=== PATIENT | female | born 1945 | race Caucasian/White ===

== ENCOUNTER 2018-02-15 16:39 | Emergency (ER) | payer OTHER, SELFPAY ==
--- NOTE | 2018-02-15 16:41 | DI.RAD.S_ITS ---
PROCEDURE: XR CHEST 1V INDICATIONS: chest pain TECHNIQUE: One view of the chest was acquired. COMPARISON: None. FINDINGS: Surgical changes and devices: None. Lungs and pleura: No pleural effusions or pneumothorax. There are linear opacities peripherally in the lung bases likely representing atelectasis or scarring. Mediastinum: There is a large hiatal hernia. Heart size is normal. Bones and chest wall: No suspicious bony lesions. There is a dextroscoliosis of the lower thoracic spine. Overlying soft tissues appear unremarkable. IMPRESSION: 1. Large hiatal hernia. 2. Probable atelectasis or scarring peripherally in the lung bases. Dictated by: Higinio Ashraf M.D. on 02/15/2018 at 17:14 Approved by: Higinio Ashraf M.D. on 02/15/2018 at 17:15
== END 2018-02-15 19:41 | disposition home or self-care (01) ==
PROVIDERS: Emergency Provider Emergency Medicine; PCP Internal Medicine
DX: R07.89 Other chest pain (principal); F41.9 Anxiety disorder, unspecified
CPT/HCPCS: 71045; 80053; 82550; 83690; 83880; 84484; 85025; 85379; 85610; 85730; 93005; 99285

== ENCOUNTER → 2019-02-01 14:38 | Outpatient (CLI) | payer OTHER, SELFPAY | PROVIDERS: PCP Internal Medicine; Referring Provider Student in an Organized Health Care Education/Training Program; Visit Provider Student in an Organized Health Care Education/Training Program | DX: Z12.31 Encounter for screening mammogram for malignant neoplasm of breast (principal); Z80.3 Family history of malignant neoplasm of breast | CPT/HCPCS: 77063; 77067 ==

== ENCOUNTER → 2020-06-21 10:07 | Outpatient (CLI) | payer OTHER, SELFPAY ==
[2020-06-21 10:32] LABS: COVID19 -Nasal RAPID Negative (Negative)
== END ==
PROVIDERS: PCP Internal Medicine; Visit Provider Surgery
DX: Z20.822 Contact with and (suspected) exposure to COVID-19 (principal)
CPT/HCPCS: 87635; C9803

== ENCOUNTER 2020-06-24 09:23 | Day surgery (SDC) | payer OTHER, SELFPAY ==
[2020-06-24] VITALS (8 sets, daily range): BP systolic 134–160; BP diastolic 69–81; PULSE 62–73; RESP 13–20; TEMP 36.4–36.6; O2SAT 94–100; BMI 32.8
--- NOTE | 2020-06-24 | PATH_ITS ---
[facility] Accession Number: [id number] . 01 Material submitted: . rectum - RECTAL POLYP @15CM . 02 Diagnosis: Rectal Polyp at 15 cm: Tubular adenoma. MRV 06/27/2020 0932 Local . 02 Electronically signed: . Graciela Miner MD, Pathologist NPI- [id number] . 01 Gross description: . RECTAL POLYP @15CM: Received in formalin is 1 fragment(s) of garcia, soft tissue measuring 0.4 x 0.3 x 0.2 cm submitted entirely in 1 cassette(s) /JIAN 06/25/2020 1910 Local . 02 Pathologist provided ICD-10: K63.5 . 02 CPT . 377517 Performed at: 01 [facility] [address] [id number] MD Higinio Valladares MD Phone: [phone] Performed at: 02 [facility] [address] [place], [place] [id number] MD Sidra Nelson MD Phone: [phone]
[2020-06-24 10:01] LABS: Eosinophils Absolute Auto 0 /uL (0-450); Hematocrit 30.8 % (36-46); Monocytes Absolute Auto 700 /uL (0-900); White Blood Cell Count 10.1 X10^3/uL (4.5-11.0)
[2020-06-24 10:05] LABS: Add Manual Diff / Slide Review NO; Basophils Absolute Auto 0 /uL (0-100); Basophils Percent Auto 0.5 % (0-2); Eosinophils Percent Auto 0.2 % (2-4); Hemoglobin 9.3 g/dL (12.0-16.0); Lymphocytes Absolute Auto 900 /uL (1100-4500); Mean Corpuscular HGB Conc 30.1 % (30-36); Mean Corpuscular Hemoglobin 20.6 PG (26-34); Mean Corpuscular Volume 68.2 fL (80-100); Monocytes Percent Auto 7.4 % (3-14); Neutrophils Absolute Auto 8300 /uL (1500-7000); Neutrophils Percent Auto 82.9 % (50-75); Platelet Count 600 X10^3/uL (150-400); Red Blood Cell Count 4.51 X10^6/uL (4.0-5.2); Red Cell Distribution Width 19.1 % (11.6-14.8)
[2020-06-24] MEDS: SODIUM CHLORIDE 0.9% 1,000 ML 200 ML IV (10:12)
[2020-06-24 10:28] LABS: Anisocytosis 1+; Hypochromasia 1+; Microcytosis 1+
--- NOTE | 2020-06-24 10:42 | PM.PREOP ---
Pre-operative Note COVID-19 COVID-19 status: Negative Result date/Date tested (Pos, Neg/Pending): 06/21/20 Interval Note History & Physical reviewed/Exam performed by Physician: Yes Changes to H&P: No
--- NOTE | 2020-06-24 10:55 | P.OP.ENDO_ITS ---
Operative Date/Time/Diagnoses Date of procedure: 06/24/20 Time of procedure: 10:55 Pre-op diagnosis: Anemia, personal history of colon polyps in 2012 Post-op diagnosis: other (Low-grade diverticulosis. Single pre cancerous appearing polyp in the rectum. No specific source of anemia was identified.) Procedure & Clinicians Study performed: Colonoscopy Polypectomy with Jumbo forceps Esophagogastroduodenoscopy Same procedure as scheduled: Yes Indications: Anemia, rule out GI source, personal history of colon polyps in 2013. Due to her severe anemia, and therefore increased cardiac risk for the procedure, I have consulted the anesthesiologist to provide sedation and monitor the patient during the procedure. Surgeon: Shu Lane Procedure Notes SCOAP/Timeout: Performed Procedure in detail: The patient was brought to the room and placed in left lateral decubitus position with all bony prominences padded. A bite block was positioned in the patient's mouth to protect the lips, teeth, and tongue for the procedure. A time-out was performed and then the patient was given MAC sedation by Dr. Conklin. Once adequately sedated, the procedure was begun. The lubricated gastroscope was passed through the bite block and across the tongue and into the esophagus without incident. A tubular view of the esophagus was maintained as the scope was advanced through the esophagus and into the stomach. The scope was advanced through the stomach and to the pylorus. The scope was gently popped through the pylorus and into the duodenal bulb. The scope was flexed and advanced into the second and third portions of the duodenum. The duodenum and duodenal bulb [appeared normal]. The scope was withdrawn into the stomach. The stomach [appeared normal]. The scope was retroflexed and the gastric cardia was examined. The patient had a large, Hill grade 4 hiatal hernia without any erosions or ulcerations. The scope was then straightened, and withdrawn into the esophagus. The Z-line [appeared normal]. The distal esophagus [appeared normal]. The scope was then withdrawn through the esophagus with a tubular view. The scope was then withdrawn from the patient And attention was turned to the colonoscopy portion of the procedure. A rectal exam was performed revealing no abnormalities. The colonoscope was then introduced to the rectum and advanced to the cecum in the usual fashion.]The cecum was identified by the appendiceal orifice, the mucosal tri- fold, and the ileocecal valve. In the cecum there was a small submucosal contour abnormality consistent with a granuloma, or suture material from prior surgery covered with mucosa. There was no polyp associated with this, and it did not appear to be an AVM or any cancerous or precancerous lesion. It did not appear to be any source of anemia. Scope was then retracted while rotating side to side and examining each mucosal fold. A small polyp was found at 15 cm in the rectum, and removed with Jumbo forceps. It did not appear to be a source of bleeding. Low-grade diverticulosis was seen in the sigmoid colon. It did not appear to be any source of bleeding or anemia. At the conclusion of the procedure retroflexion was performed and small grade 1-2 internal hemorrhoids without stigmata of bleeding were seen. The scope was then withdrawn from the rectum the procedure was concluded. The patient tolerated the procedure well and was transferred to the PACU in stable condition. Scope withdrawal time: 8 Findings: diverticulosis, hiatal hernia, polyp and other findings (No source of bleeding or anemia was found) Specimen(s): none sent (Rectal polyp) Complications: none Impression: No source of bleeding or anemia was found. Post-procedure Recommendations: Colonscopy in 5 years (Depending on pathology results) Follow up: as needed Disposition: PACU
== END 2020-06-24 12:13 | disposition home or self-care (01) ==
PROVIDERS: PCP Internal Medicine; Referring Provider Surgery; Visit Provider Surgery
PROC: 0DJ08ZZ Inspection of Upper Intestinal Tract, Via Natural or Artificial Opening Endoscopic (ICD-10-PCS; CPT 43235; principal; 2020-06-24 10:45)
PROC: 0DJD8ZZ Inspection of Lower Intestinal Tract, Via Natural or Artificial Opening Endoscopic (ICD-10-PCS; CPT 45378; 2020-06-24 10:45)
DX: D64.9 Anemia, unspecified (principal); K21.9 Gastro-esophageal reflux disease without esophagitis; I10 Essential (primary) hypertension; E66.9 Obesity, unspecified; Z68.32 Body mass index [BMI] 32.0-32.9, adult; K64.0 First degree hemorrhoids; K57.30 Diverticulosis of large intestine without perforation or abscess without bleeding; K44.9 Diaphragmatic hernia without obstruction or gangrene; D12.8 Benign neoplasm of rectum
CPT/HCPCS: 45380; 43235; 36415; 85025

== ENCOUNTER → 2020-07-08 18:42 | Outpatient (ROUT) | payer OTHER, SELFPAY ==
[2020-07-08 19:30] LABS: Add Manual Diff / Slide Review NO; Basophils Absolute Auto 100 /uL (0-100); Basophils Percent Auto 1.1 % (0-2); Eosinophils Absolute Auto 100 /uL (0-450); Eosinophils Percent Auto 1.6 % (2-4); Hematocrit 33.2 % (36-46); Lymphocytes Absolute Auto 1000 /uL (1100-4500); Lymphocytes Percent Auto 15.2 % (25-40); Mean Corpuscular Hemoglobin 21.9 PG (26-34); Mean Corpuscular Volume 73.1 fL (80-100); Monocytes Absolute Auto 700 /uL (0-900); Monocytes Percent Auto 9.7 % (3-14); Neutrophils Absolute Auto 4900 /uL (1500-7000); Neutrophils Percent Auto 72.4 % (50-75); Platelet Count 379 X10^3/uL (150-400); Red Blood Cell Count 4.54 X10^6/uL (4.0-5.2); Red Cell Distribution Width 25.3 % (11.6-14.8); White Blood Cell Count 6.8 X10^3/uL (4.5-11.0)
[2020-07-08 19:52] LABS: Blood Urea Nitrogen 21 mg/dL (7-17); Calcium 9.9 mg/dL (8.4-10.2); Carbon Dioxide 26 mmol/L (22-32); Chloride 104 mmol/L (98-107); Estimated Glomerular Filt Rate > 60.0 mL/min (>60); Glucose 100 mg/dL (80-110); HEMOLYSIS < 15 (0-50); Potassium 4.9 mmol/L (3.4-5.1); Sodium 139 mmol/L (137-145)
[2020-07-08 20:00] LABS: Hypochromasia 2+; Microcytosis 2+
[2020-07-08 20:01] LABS: Polychromasia 1+
[2020-07-08 20:34] LABS: Ferritin 17 ng/mL (11-264)
== END ==
PROVIDERS: PCP Internal Medicine; Visit Provider Internal Medicine
DX: D50.9 Iron deficiency anemia, unspecified (principal); I10 Essential (primary) hypertension
CPT/HCPCS: 80048; 82728; 83540; 83550; 85025

== ENCOUNTER → 2020-08-23 19:01 | Outpatient (ROUT) | payer OTHER, SELFPAY ==
[2020-08-23 19:23] LABS: HEMOLYSIS < 15 (0-50); Iron 48 ug/dL (37-170)
[2020-08-23 19:24] LABS: BUN Creatinine Ratio 31.9 (6-22); Blood Urea Nitrogen 30 mg/dL (7-17); Estimated Glomerular Filt Rate 58.4 mL/min (>60)
[2020-08-23 19:26] LABS: Add Manual Diff / Slide Review NO; Basophils Absolute Auto 0 /uL (0-100); Basophils Percent Auto 0.7 % (0-2); Eosinophils Absolute Auto 100 /uL (0-450); Eosinophils Percent Auto 0.7 % (2-4); Hematocrit 40.6 % (36-46); Hemoglobin 12.9 g/dL (12.0-16.0); Lymphocytes Absolute Auto 1600 /uL (1100-4500); Lymphocytes Percent Auto 21.5 % (25-40); Mean Corpuscular HGB Conc 31.8 % (30-36); Mean Corpuscular Hemoglobin 25.9 PG (26-34); Mean Corpuscular Volume 81.6 fL (80-100); Monocytes Absolute Auto 500 /uL (0-900); Monocytes Percent Auto 6.8 % (3-14); Neutrophils Absolute Auto 5300 /uL (1500-7000); Neutrophils Percent Auto 70.3 % (50-75); Platelet Count 307 X10^3/uL (150-400); Red Blood Cell Count 4.98 X10^6/uL (4.0-5.2); Red Cell Distribution Width 30.4 % (11.6-14.8); White Blood Cell Count 7.5 X10^3/uL (4.5-11.0)
[2020-08-23 19:34] LABS: Percent Iron Saturation 16 % (15-50); Total Iron Binding Capacity 304 ug/dL (265-497); Transferrin 250 mg/dL (206-381)
[2020-08-23 19:59] LABS: Ferritin 86 ng/mL (11-264)
[2020-08-23 20:02] LABS: Anisocytosis 3+; Dimorphic RBC PRESENT; Microcytosis 1+
== END ==
PROVIDERS: PCP Internal Medicine; Visit Provider Internal Medicine
DX: D50.9 Iron deficiency anemia, unspecified (principal); I10 Essential (primary) hypertension; R10.9 Unspecified abdominal pain
CPT/HCPCS: 82565; 82728; 83540; 83550; 84520; 85025

== ENCOUNTER → 2020-08-27 09:22 | Outpatient (CLI) | payer OTHER, SELFPAY ==
--- NOTE | 2020-08-27 10:37 | DI.CT.S_ITS ---
PROCEDURE: CT ABDOMEN PELVIS W CON INDICATIONS: Unspecified abdominal pain TECHNIQUE: After the administration of oral and intravenous contrast, axial sections were acquired from the lung bases to the pubic symphysis. Coronal and sagittal reformats were performed. For radiation dose reduction, the following was used: automated exposure control, adjustment of mA and/or kV according to patient size. COMPARISON:None. FINDINGS: Image quality: Excellent. Lung bases: Unremarkable. However, a moderately large hiatal hernia is seen behind the heart. Heart: No significant findings. ABDOMEN: Liver: Unremarkable. Gallbladder: Normal. Biliary ducts: Unremarkable. Pancreas: Unremarkable. Spleen: Unremarkable. Adrenal Glands: Unremarkable. Kidneys and Ureters: Unremarkable. Stomach and Bowel: Stomach, small bowel loops, and colon are unremarkable. Mild to moderate right colonic obstipation. Peritoneum: No abnormal intraperitoneal fluid. No free air. Ventral Wall: No hernia. Abdominal Nodes: No retroperitoneal or mesenteric adenopathy by size criteria. Vessels: Aorta and inferior vena cava are normal in size. PELVIS: Pelvic Organs: Unremarkable. Bladder: Unremarkable. Pelvic Nodes: No enlarged lymph nodes. Miscellaneous: No inguinal hernias are seen. Bones: Unremarkable. IMPRESSION: Moderately large hiatal hernia behind the heart. Moderate right-sided colonic obstipation. No sign of intestinal obstruction or perforation. A source of non-specific abdominal pain is not identified. Dictated by: Srinath Multani M.D. on 08/27/2020 at 14:04 Approved by: Srinath Multani M.D. on 08/27/2020 at 14:06
== END ==
PROVIDERS: PCP Internal Medicine; Referring Provider Internal Medicine; Visit Provider Internal Medicine
DX: R10.9 Unspecified abdominal pain (principal); K44.9 Diaphragmatic hernia without obstruction or gangrene
CPT/HCPCS: 74177